=== PATIENT | female | born 1995 | race African-American/Black ===

== ENCOUNTER 2021-08-06 06:45 | Emergency (ER) | payer MEDICAID ==
[~2021-08-06] VITALS: Ht 149.9 cm; Wt 46.7 kg
[2021-08-06 08:00] VITALS: BP 100/62
[2021-08-06] MEDS ORDERED: FLUORESCEIN OPHTH TEST STRIP. OS ONE (08:15)
[2021-08-06] MEDS ORDERED: PRED50TA PO (09:15)
[2021-08-06] MEDS ORDERED: ACYC800T88 PO (09:15)
--- NOTE | 2021-08-06 09:16 | PHYS DOC ---
Past Medical History Past Medical History: No Pertinent History Past Surgical History: Smoking Status: Current Every Day Smoker Additional Information: 1 ppd Alcohol Use: Rarely Drug Use: None General Adult EDM: Chief Complaint: SKIN RASH/ABSCESS HPI: HPI: 26-year-old female past medical history of tobacco use, presents the ED with complaints of nonpruritic rash that started in the back of her neck 2 days ago, woke up with it on Wednesday. Rash is not painful unless she sleeps on her left side. Reports her vaccinations are up-to-date including chickenpox. Denies any associated blurry vision, visual changes, red eye or eye discharge, ear pain or hearing loss. Rashes has spread to her let lower jaw and her left upper chest. Rash was raised initially hard and but lesions have become fluid-filled. Rash does not involve her mouth, gingiva or lips. Review of Systems: Review of Systems: Constitutional: Denies fever or chills. [] Eyes: Denies change in visual acuity. [] HENT: Denies nasal congestion or sore throat. [] Respiratory: Denies cough or shortness of breath. [] Cardiovascular: Denies chest pain or edema. [] GI: Denies nausea or vomiting, Musculoskeletal: Denies back pain or joint pain. [] Integument: Denies desquamation or black skin color changes Neurologic: Denies headache, neck pain or stiffness, focal weakness or sensory changes. [] Endocrine: Denies polyuria or polydipsia. [] Lymphatic: Denies swollen glands. [] Psychiatric: Denies depression or anxiety. [] Heart Score: C/O Chest Pain: No Risk Factors: Risk Factors: DM, Current or recent (<one month) smoker, HTN, HLP, family history of CAD, obesity. Risk Scores: Score 0 - 3: 2.5% MACE over next 6 weeks - Discharge Home Score 4 - 6: 20.3% MACE over next 6 weeks - Admit for Clinical Observation Score 7 - 10: 72.7% MACE over next 6 weeks - Early Invasive Strategies Current Medications: Current Medications Medications (Trade) Dose Ordered Sig/Stuart Start Time Stop Time Status Last Admin Dose Admin Fluorescein Sodium (Ful-Sharon) 1 strip 1X ONCE 08/06/21 08:15 08/06/21 08:18 DC 08/06/21 08:26 1 STRIP Allergies: Allergies: Allergies Coded Allergies Type Severity Reaction Last Updated Verified No Known Drug Allergies 08/06/21 No Physical Exam: PE: Constitutional: Well developed, well nourished, no acute distress, non-toxic appearance. HENT: Normocephalic, atraumatic,, normal left tympanic membrane with no fluid- filled vesicles or erythema or effusion Eyes: PERRLA, EOMI, conjunctiva normal, no discharge, no fluorescein uptake with Zamudio lamp exam, no oral lesions or ulcers Neck: Normal range of motion, supple, no nuchal rigidity or meningismus Cardiovascular: S1/2 present, regular rhythm Lungs & Thorax: Speaking in full sentences, bilateral equal chest rise, no tachypnea or increased work of breathing Skin: Warm, dry, patchy areas multiple fluid-filled lesions over patient's left posterior neck, left anterior neck, left lower jaw, and left anterior chest wall that do not cross midline, no associated erythema of the skin, no ttp, negative Nikolsky sign, no desquamation Back: No midline tenderness, no CVA tenderness. [] Extremities: No tenderness, no cyanosis, Neurologic: cn 2-12 intact, no facial nerve palsy, Alert and oriented X 3, normal motor function, normal sensory function, no focal deficits noted. [] Psychologic: Affect normal, judgement normal, mood normal. [] Current Patient Data: Vital Signs: Vital Signs Date Time Temp Pulse Resp B/P (MAP) Pulse Ox O2 Delivery O2 Flow Rate FiO2 08/06/21 08:00 98.9 84 18 100/62 (75) 100 Room Air 98.9 EKG: EKG: [] Radiology/Procedures: Radiology/Procedures: [] Course & Med Decision Making: Course & Med Decision Making Pertinent Labs and Imaging studies reviewed. (See chart for details) Concern for unilateral nonpruritic rash over patient's left side of her body that does not cross midline, consistent with shingles infection. Patient does report increased stress over her current living situation and decreased sleep. Pain is well tolerated with [id number] medications. Will prescribe a Cyclovir and prednisone for the next 7 days. Patient was educated on complications including pneumonia, Sean Lowe syndrome and ophthalmicus. Will discharge home with strict ED return precautions were given for otalgia, rash over the nose, visual changes, headache, neck stiffness, cough or fever. Encouraged urgent outpatient follow-up with PMD. Life-threatening processes were considered but are low suspicion at this time, given history, physical exam and ED workup. Pt was educated on all prescription medications and adverse effects. All patient's questions were answered and pt was stable at time of discharge. Life/limb-threatening differential includes but is not limited to, erythema multiforme, robertson-airam syndrome, toxic epidermal necrolysis, staphylococcal scalded skin syndrome, necrotizing fasciitis/myositis/cellulitis, purpura fulminans, heparin or warfarin induced skin necrosis, angioedema, anaphylaxis drug rash, disseminated intravascular coagulation, disseminated gonococcal di sease, vasculitis, septicemia, petechial disorder or coagulopathy, viral exanthem, Kawasaki's disease or life-threatening burn requiring burn center management or escharotomy. I have spoken with the patient and/or caregivers. I explained the patient's co ndition, diagnoses and treatment plan based on the information available to me at this time. I have answered the patient and/or caregiver's questions and addressed any concerns. The patient and/or caregivers have a good understanding of patient's diagnosis, condition and treatment plan as can be expected at this point. Vital signs have been stable. Patient's condition is stable and appropriate for discharge from the emergency department. Patient will pursue further outpatient evaluation with primary care physician or other designated or consulting physician as outlined in the discharge instructions. The patient and/or caregivers are agreeable to this plan of care and follow-up instructions have been explained in detail. The patient and/or caregivers have received these instructions in written form and have expressed an understanding of the discharge instructions. The patient and/or caregivers are aware that any significant change of condition or worsening of symptoms should prompt immediate return to this or the closest emergency department or call to 911. Eliz Disclaimer: Eliz Disclaimer: This electronic medical record was generated, in whole or in part, using a voice recognition dictation system. Departure Departure Impression: Primary Impression: Shingles rash Disposition: HOME / SELF CARE / HOMELESS Condition: STABLE Referrals: NO PCP (PCP) Follow-up with your primary care physician in 2-3 days OR FOLLOW UP WITH FAMILY MEDICINE: [address], [address] [place] [address] Patient Instructions: Shingles Additional Instructions: EMERGENCY DEPARTMENT GENERAL DISCHARGE INSTRUCTIONS Thank you for coming to [facility] Emergency Department (ED) today and trusting us with you care. We trust that you had a positive experience in our Emergency Department. If you wish to speak to the department management, you may call the Director at [phone]. YOUR FOLLOW UP INSTRUCTIONS ARE FOLLOWS: 1. Do you have a private Doctor? If you do not have a private doctor, please ask for a resource list of physicians or clinics that may be able to assist you with follow up care. 2. The Emergency Physicain has interpreted your x-rays. The X-Ray specialist will also review them. If there is a change in the findings, you will be notified in 48 hours when at all possible. 3. A lab test or culture has been done, your results will be reviewed and you will be notified if you need a change in treatment. ADDITIONAL INSTRUCTIONS AND INFORMATION: 1. Your care today has been supervised by a physician who is specially trained in emergency care. Many problems require more than one evaluation for a complete diagnosis and treatment. We recommend that you schedule your follow up appointment as recommended to ensure complete treatment of you illness or injury. If you are unable to obtain follow up care and continue to have a problem, or if your condition worsens, we recommend that you return to the ED. 2. We are not able to safely determine your condition over the phone nor are we able to give sound medical advice over the phone. For these safety reasons, if you call for medical advice we will ask you to come to the ED for further evaluation. 3. If you have any questions regarding these discharge instructions please call the ED at [phone]. SAFETY INFORMATION: In the interest of safety, wellness, and injury prevention; we encourage you to wear your sealbelt, if you smoke; quite smoking, and we encourage family to use a protective helmet for bicycling and other sporting events that present an increased risk for head injury. IF YOUR SYMPTOMS WORSEN OR NEW SYMPTOMS DEVELOP, OR YOU HAVE CONCERNS ABOUT YOUR CONDITION; OR IF YOUR CONDITION WORSENS WHILE YOU ARE WAITING FOR YOUR FOLLOW UP APPOINTMENT; EITHER CONTACT YOUR PRIMARY CARE DOCTOR, THE PHYSICIAN WHOSE NAME AND NUMBER YOU WERE GIVEN, OR RETURN TO THE ED IMMEDIATELY. Scripts Acyclovir (ACYCLOVIR) 800 Mg Tablet 1 TAB PO 5XDAY for 7 Days, #35 TAB Prov: VOHS,RADHA M DO 08/06/21 Prednisone (PREDNISONE) 50 Mg Tablet 1 TAB PO DAILY for 7 Days, #7 TAB Prov: RADHA CASTELLON DO 08/06/21 RADHA CASTELLON DO Aug 06, 2021 09:16
== END 2021-08-06 09:20 | disposition home or self-care (01) ==
LOC: ER 06:45
DX: B02.9 Zoster without complications (principal); F17.200 Nicotine dependence, unspecified, uncomplicated
CPT/HCPCS: 99283